=== PATIENT | female | born 1980 | race African-American/Black ===

== ENCOUNTER → 2020-08-16 16:43 | Oncology outpatient (ONC) | payer OTHER, SELFPAY ==
[2020-05-28 10:26] VITALS: BP 115/63; PULSE 71; RESP 16; TEMP 36.3; O2SAT 99
--- NOTE | 2020-05-28 12:42 | ONC.CONS ---
History of Present Illness - Data of Consult Primary Care Provider: Denis Amor MD - Consult Narrative Narrative: Milagro Brewer is a 40 year old female who is referred for further evaluation of leukocytosis. She recalls being told when she was about 23 (17 years ago) that she had an elevated white count. Review of her records available here [place] [address] in July of 2001. In August of 2010 [place] [address] with normal hemoglobin, hematocrit and platelets. Since then her white count has been consistently elevated in the 11 to 15,000 range with an elevated ANC. She has occasionally had minimal elevation of her % eosinophils. Platelets have been normal. She has had a minimal anemia on 2 occasions but her hemoglobin hematocrit have otherwise been normal. She has had no atypical circulating white blood cells. Because of these findings she is referred for Hematology consultation. She notes some ongoing pain in her knee due to a recent fall. She previously was seen by physical therapy and told she had bad body mechanics. She has chronic back pain that has not really changed. She denies any new lumps or bumps, new pain, bleeding from anywhere, fever, chills, night sweats, anorexia, unintended weight loss, cough, shortness of breath, localized weakness, or trouble swallowing. She has not had a rash or pruritus. All other systems are negative. Past medical history 1. She has a history of asthma. She gets pneumonia and bronchitis frequently and takes antibiotics and prednisone 5 to 6 times a year. Typically the course of prednisone is just a few days. 2. She has a history of congestive heart failure and is on medications for this. 3. She was admitted to [facility] in January of 2019 with sepsis. She was noted to have congestive heart failure. She follows with cardiology for this. 4. She denies high blood pressure, diabetes, rheumatic fever, tuberculosis, heart attacks, strokes, stomach ulcers, or any kind of cancer 5. History of obstructive sleep apnea 6. Bipolar affective disorder 7. She has worked in [employer]. She is not a smoker. She has been exposed to secondhand smoke in her who he smoked outside 2 packs a day, but did changes clothes when he came inside. She is not a drinker. She is accompanied in the office today by her mother. 8. Family history is remarkable for a maternal great uncle that had bone marrow cancer. A maternal 2nd cousin had a blood cancer. There is no other family history of cancer in close relatives 9. She has had a tonsillectomy. She has no history of spleen trauma like 10. She has no known drug allergies 11. Current medications include carvedilol, Seroquel, Lamictal, hydralazine, torsemide, aspirin, trazodone, medroxyprogesterone, Entresto and clonidine CC: Denis Price MD Home Medications and Allergies Home Medications Medication Instructions Recorded Confirmed Type albuterol sulfate 90 mcg/actuation 2 inhalation INHALATION PRN #85 03/16/19 03/21/20 History aerosol inhaler gram aspirin 81 mg tablet,delayed 81 mg PO #30 tab 03/16/19 03/21/20 History release carvedilol 25 mg tablet 25 mg PO BID #60 tab 03/16/19 03/21/20 History hydralazine 50 mg tablet PO #90 tab 03/16/19 03/21/20 History medroxyprogesterone 10 mg tablet 20 mg PO #60 tab 03/16/19 03/21/20 History sacubitril 24 mg-valsartan 26 mg 1 tab PO ONCE tab 03/16/19 03/21/20 History tablet trazodone 100 mg tablet 100 mg PO HS #90 tab 03/19/20 03/21/20 Rx clonidine HCl 0.1 mg tablet 0.1 mg PO BID #60 tab 04/24/20 Rx lamotrigine 200 mg tablet 400 mg PO .HS #60 tab 04/24/20 Rx quetiapine 300 mg tablet 300 mg PO BEDTIME #30 tab 04/24/20 Rx torsemide 10 mg PO DAILY 05/28/20 05/28/20 History Allergies Allergy/AdvReac Type Severity Reaction Status Date / Time No Known Drug Allergies Allergy Verified 03/21/20 16:01 Medical History - Social History Smoking Status: Never smoker Review of Systems - Patient Self-Reported Symptoms SR Constitution: Weight loss/gain SR Musculoskeletal issues: Joint pain or swelling, Back or neck pain, Difficulty walking SR Neuro issues: Headache, Difficulty balancing Exam Vital signs: Vital Signs Temp Pulse Resp BP Pulse Ox 05/28/20 10:26 97.4 F L 71 16 115/63 99 Intake and Output 05/27/20 05/28/20 05/28/20 23:59 07:59 15:59 Other: Weight 186.8 kg Patient Weight 05/28/20 23:59 Weight 186.8 kg Narrative: She was awake, alert and oriented x3. She was in no acute distress. There was no palpable lymphadenopathy in the cervical, supraclavicular axillary regions. There were no suspicious skin lesions. Heart showed a regular rate and rhythm without of rub. Abdomen was soft and nontender with the spleen and liver normal in size by percussion and palpation. Assessment and Plan (1) Leucocytosis Status: Acute Ms. 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 I explained that her persistent and mild elevation of her white count could simply be a normal variant. Alternatively, this could represent an underlying hematologic condition. We will repeat a blood count with a manual differential looking for atypical forms. Will also get a BCR ABL to exclude chronic myelogenous leukemia. I explained that although this is unlikely, given the enormous treatment implications of this diagnosis, we would want to make sure that we have not miss this. We briefly discussed the natural history of CML and treatment with modern tyrosine kinase inhibitors. Other potential causes of her elevated white count could be tobacco exposure. However, this is primarily in the form of secondhand smoke and her , they source of this, a smokes outside. Accordingly, I think it is unlikely that that is the reason. She wonder whether chronic lung inflammation could raise her white count. I explained that it could but she does not have other hematologic markers of chronic inflammation such as thrombocytosis or anemia. We also discussed the fact that prednisone can make her white count go up. She is exposed to a relatively frequently but only for brief durations and her white count elevation has been persistent at multiple times of the year. Accordingly, I think it is less likely that this is the culprit. She will have labs done today for CBC with manual differential and has BCR ABL. She was instructed to call about 2 weeks after the labs are drawn for results. Any abnormalities will be appropriately pursued. If she has abnormal white blood cell forms, we could consider flow cytometry. If she has a positive bcr/ABL she will need appropriate workup in therapy for CML. If her screening labs are unrevealing, I would suggest she continue follow-up with Dr. Denis Amor and have her CBC checked annually. She and her mother had multiple questions that were answered in detail. I personally spent 46 minutes in today's [id number] visit with greater than 50% of the time spent in counseling regarding the issues outlined above.
--- NOTE | 2020-05-29 09:55 | ONC.SCHED ---
received PA for BCR ABL and put in arm. Called patient to let he know that she can have the lab drawn now. Per Ben, who looked at dictation Dr. Price will call her with the results.
[2020-08-16 17:48] LABS: Hematocrit 38.5 % (36-46); Hemoglobin 12.5 g/dL (12.0-16.0); Mean Corpuscular HGB Conc 32.4 % (30-36); Mean Corpuscular Hemoglobin 27.4 PG (26-34); Mean Corpuscular Volume 84.5 fL (80-100); Platelet Count 304 X10^3/uL (150-400); Red Blood Cell Count 4.56 X10^6/uL (4.0-5.2); Red Cell Distribution Width 15.1 % (11.6-14.8); White Blood Cell Count 12.1 X10^3/uL (4.5-11.0)
[2020-08-16 18:33] LABS: Neutrophils Absolute Manual 6897 /uL (3000-5900); Total Cells Counted 100
[2020-08-16 18:34] LABS: RBC Morphology Normal Morphology
== END ==
PROVIDERS: Family Provider Family Medicine; PCP Family Medicine; Referring Provider Family Medicine; Visit Provider Internal Medicine
DX: D72.829 Elevated white blood cell count, unspecified (principal)
CPT/HCPCS: 36415; 81206; 81207; 85025; 99204; 99214